=== PATIENT | female | born 1965 | race Caucasian/White ===

== ENCOUNTER 2016-11-23 05:57 | Day surgery (SDC) | payer BC ==
[~2016-11-23 05:57] MED LIST: ALPR-475 PO; ATOR40TA78 PO; ERGO500017 PO; HYDR-3240 PO; IBUP-1223 PO; LEVO25TA4 PO
[2016-11-23] MEDS ORDERED: EPINEPHRINE 1 MG/ML, 1ML ONE (07:02)
[2016-11-23] MEDS ORDERED: FENTANYL PF 100 MCG/2ML ONE ×3 (07:37)
[2016-11-23] MEDS ORDERED: MIDAZOLAM 1 MG/ML, 2ML ONE (07:41)
== END 2016-11-23 17:00 ==
LOC: OR 05:57
PROVIDERS: ATTEND Otolaryngology
DX: Z02.9 Encounter for administrative examinations, unspecified (principal)
CPT/HCPCS: J0171; J2250; J3010